=== PATIENT | female | born 1955 | race African-American/Black ===

== ENCOUNTER 2018-08-21 06:25 | Day surgery (SDC) | payer OTHER ==
[2018-08-19 09:59] VITALS: BMI 23.9
[2018-08-21] VITALS (13 sets, daily range): BP systolic 104–175; BP diastolic 61–89; PULSE 58–79; RESP 14–21; Ht 163.8 cm; Wt 63.8 kg
[~2018-08-21] VITALS: Ht 163.8 cm; Wt 63.8 kg
[~2018-08-21 06:25] MED LIST: SOD CHLORIDE 0.9% 1,000 ML IV SCH
[2018-08-21] MEDS ORDERED: MIDAZOLAM 1 MG/ML 2 ML INJ ONE (10:18)
[2018-08-21] MEDS ORDERED: NEOSTIGMINE 3 MG/3 ML SYRINGE ONE (10:18)
[2018-08-21] MEDS ORDERED: ROCURONIUM 50 MG INJ ONE (10:18)
[2018-08-21] MEDS ORDERED: GLYCOPYRROLATE 0.4 MG INJ ONE (10:18)
[2018-08-21] MEDS ORDERED: FENTAnyl 50 MCG/ML VIAL ONE ×2 (10:18→12:31)
[2018-08-21] MEDS ORDERED: ONDANSETRON 4 MG INJ ONE (10:18)
[2018-08-21] MEDS ORDERED: CEFAZOLIN 1 GM INJ ONE (10:18)
[2018-08-21] MEDS ORDERED: DEXAMETHASONE 4 MG/ML 5 ML INJ ONE (10:18)
[2018-08-21] MEDS ORDERED: PROPOFOL 20 ML ONE (10:18)
--- NOTE | 2018-08-21 10:56 | PREAC ---
Date/Time of Note Date/Time of Note DATE: 08/21/18 TIME: 10:53 Anesthesia Eval and Record Evaluation Time Pre-Procedure Interview DATE: 08/21/18 TIME: 10:53 Age 62 Sex female NPO: 8 hrs Preoperative diagnosis DEFORMITYOF RECONSTRUCTED BREAST Planned procedure BILATERAL BREAST RECONSTRUCTION Past Medical History Past Medical History: None Surgery & Anesthesia Issues No known issue Meds Anticoagulation: No Beta Adalgisa within 24 hr: No Reason Beta Adalgisa not given: Pt. not on B-Adalgisa No Active Prescriptions or Reported Meds Current Medications Sodium Chloride 1,000 ml @ 0 mls/hr Q0M IV ; Start 08/21/18 at 06:00; Stop 08/21/18 at 16:00 Hydromorphone HCl (Dilaudid) 0.2 mg PACU PRN IV MILD PAIN 1-3; Start 08/21/18 at 11:00; Status UNV Hydromorphone HCl (Dilaudid) 0.4 mg PACU PRN IV MOD PAIN 4-6; Start 08/21/18 at 11:00; Status UNV Hydromorphone HCl (Dilaudid) 0.6 mg PACU PRN IV SEVERE PAIN 7-10; Start 08/21/18 at 11:00; Status UNV Fentanyl (Sublimaze) 25 mcg PACU ORDER PRN IV MILD PAIN 1-3; Start 08/21/18 at 11:00; Status UNV Fentanyl (Sublimaze) 50 mcg PACU ORDER PRN IV MOD PAIN 4-6; Start 08/21/18 at 11:00; Status UNV Fentanyl (Sublimaze) 75 mcg PACU ORDER PRN IV SEVERE PAIN 7-10; Start 08/21/18 at 11:00; Status UNV Oxycodone/ Acetaminophen (Percocet (5/ 325)) 1 tab PACU ORDER PRN PO .PAIN 1-5; Start 08/21/18 at 11:00; Status UNV Oxycodone/ Acetaminophen (Percocet (5/ 325)) 2 tab PACU ORDER PRN PO .PAIN 6-10; Start 08/21/18 at 11:00; Status UNV Ondansetron HCl (Zofran Inj) 4 mg PACU ORDER PRN IV NAUSEA/VOMITING; Start 08/21/18 at 11:00; Status UNV Trimethobenzamide HCl (Tigan) 200 mg PACU ORDER PRN IM NAUSEA/VOMITING; Start 08/21/18 at 11:00; Status UNV Labetalol HCl (Labetalol) 5 mg PACU ORDER PRN IV HIGH BLOOD PRESSURE; Start 08/21/18 at 11:00; Status UNV Hydralazine HCl (Apresoline) 5 mg PACU ORDER PRN IV HIGH BLOOD PRESSURE; Start 08/21/18 at 11:00; Status UNV Ephedrine Sulfate 5 mg PACU ORDER PRN IV BLOOD PRESSURE SUPPORT; Start 08/21/18 at 11:00; Status UNV Albuterol (Proventil 0.083% (Neb)) 2.5 mg PACU ORDER PRN HHN .WHEEZING; Start 08/21/18 at 11:00; Status UNV Ipratropium Franklin (Atrovent 0.02% (Neb)) 0.5 mg PACU ORDER PRN HHN .WHEEZING; Start 08/21/18 at 11:00; Status UNV Meperidine HCl (Demerol) 25 mg PACU ORDER PRN IV .RIGORS; Start 08/21/18 at 11:00; Status UNV Diphenhydramine HCl (Benadryl) 25 mg PACU ORDER PRN IV .PRURITUS; Start 08/21/18 at 11:00; Status UNV Midazolam HCl (Versed) 0.5 mg PACU ORDER PRN IV .ANXIETY; Start 08/21/18 at 11:00; Status UNV Meds reviewed: Yes Allergies Coded Allergies: No Known Allergy (Unverified , 08/21/18) Allergies Reviewed: Yes Labs/Studies Labs Reviewed: Reviewed by anesthesiologist test: N/A Pre-procedure Exam Last vitals Vital Signs Date Temp Pulse Resp B/P (MAP) Pulse Ox O2 O2 Flow FiO2 Time Delivery Rate 08/21/18 97.5 79 16 157/70 100 07:50 (99) Airway: Adequate mouth opening, Adequate thyromental dist Mallampati: Mallampati II Teeth: Normal Lung: Normal Heart: Normal ASA Physical Status ASA physical status: 1 Emergency: None Planned Anesthetic General/MAC: ETT Planned Pain Management Parenteral pain med Pre-operative Attestations Prior to commencing anesthesia and surgery, the patient was re-evaluated, there was verification of: *The patient's identity *The results of appropriate recent lab work and preoperative vital signs *The above evaluation not changing prior to induction *Anesthetic plan, risk benefits, alternative and complications discussed with patient/family; questions answered; patient/family understands, accepts and wis hes to proceed. Ronan Ortiz M.D. Aug 21, 2018 10:56
[2018-08-21] MEDS ORDERED: DIPHENHYDRAMINE 50 MG INJ IV PRN (11:00)
[2018-08-21] MEDS ORDERED: TRIMETHOBENZAMIDE 100 MG/ML VIAL IM PRN (11:00)
[2018-08-21] MEDS ORDERED: HYDROmorphONE 1 MG/5 ML IV SYRINGE IV PRN ×3 (11:00)
[2018-08-21] MEDS ORDERED: ALBUTEROL 0.083% (NEB) 2.5 MG/3 ML AMP HHN PRN (11:00)
[2018-08-21] MEDS ORDERED: EPHEDrine SULFATE 50 MG/5 ML SYG IV PRN (11:00)
[2018-08-21] MEDS ORDERED: ONDANSETRON 4 MG INJ IV PRN ×2 (11:00→13:30)
[2018-08-21] MEDS ORDERED: hydrALAzine 20 MG INJ IV PRN (11:00)
[2018-08-21] MEDS ORDERED: IPRATROPIUM (NEB) 0.5 MG/2.5 ML AMP HHN PRN (11:00)
[2018-08-21] MEDS ORDERED: FENTAnyl 50 MCG/ML VIAL IV PRN ×3 (11:00)
[2018-08-21] MEDS ORDERED: MIDAZOLAM 1 MG/ML 2 ML INJ IV PRN (11:00)
[2018-08-21] MEDS ORDERED: MEPERIDINE 25 MG INJ IV PRN (11:00)
[2018-08-21] MEDS ORDERED: OXYCODONE/ACETAMINOPHEN (5/325) TAB PO PRN ×2 (11:00)
[2018-08-21] MEDS ORDERED: LABETALOL HCL 20MG INJ IV PRN (11:00)
--- NOTE | 2018-08-21 11:03 | PAC ---
Date/Time of Note Date/Time of Note DATE: 08/21/18 TIME: 11:03 Post-Anesthesia Notes Post-Anesthesia Note Last documented vital signs Vital Signs Date Temp Pulse Resp B/P (MAP) Pulse Ox O2 O2 Flow FiO2 Time Delivery Rate 08/21/18 97.5 79 16 157/70 100 07:50 (99) Activity: WNL Respiratory function: WNL Cardiovascular function: WNL Mental status: Baseline Pain reasonably controlled: Yes Hydration appropriate: Yes Nausea/Vomiting absent: Yes Ronan Ortiz M.D. Aug 21, 2018 11:03
[2018-08-21] MEDS ORDERED: GENTAMICIN 80 MG INJ ONE (11:18)
[2018-08-21] MEDS ORDERED: BUPIVACAINE 0.25% (MPF) 30 ML INJ ONE (11:18)
--- NOTE | 2018-08-21 11:24 | HPN ---
Date/Time of Note Date/Time of Note DATE: 08/21/18 TIME: 11:23 Interval H&P Admission Note Pt. seen H&P reviewed: No system changes ANNEMARIE PRAKASH MD Aug 21, 2018 11:24
[2018-08-21] MEDS ORDERED: BUPIVACAINE 0.5%/EPI (SDV) 30 ML INJ INJ ONE (11:30)
[2018-08-21] MEDS ORDERED: BUPIVACAINE LIPOSOME/PF 266 MG/20 ML VIAL INFIL ONE (11:30)
[2018-08-21] MEDS ORDERED: EXPAREL NOTE (BUPIVICAINE LIPOSOMAL) XX SCH (11:30)
[2018-08-21] MEDS ORDERED: BUPIVACAINE 0.5%/EPI (SDV) 30 ML INJ ONE (11:37)
--- NOTE | 2018-08-21 11:37 | OPR ---
Date/Time of Note Date/Time of Note DATE: 08/21/18 TIME: 11:24 Operative Report Free Text/Dictation Plastic Surgery Operative Report Preoperative diagnosis: bilateral breast deformity Postoperative diagnosis: same Procedure: bilateral breast reconstruction Surgeon: rachel Padilla.: PHOENIX roberts Anesthesia: gen EBL: min IV fluids: per flow sheet Findings: n/a Complications: none Dispo: home Indications for procedure: 62 yo patient presents for bilateral breast reconstruction. The risks, benefits, and alternatives of performing this procedure were discussed with the patient including the risks of bleeding, infection, wound healing problems, asymmetry, partial or total nipple necrosis. The risk of asymmetry and need for revision surgery were also discussed. The patient states that she understands these risks and would like to proceed with the procedure. All questions were answered, no guarantees were given with regards the outcome of this procedure. Description of procedure: The patient was brought to the operating room where general anesthesia was induced and she was prepped and draped in the usual sterile fashion with chloroprep. When the patient was in the supine position, the nipple tethering was fully apparent on both sides. Based on this new positioning, the plan was to perform a circumareolar mastopexy, and then through the lower portion of the incision release the tethering and reposition the breast tissue. Therefore, a circumareolar mastopexy was marked with a superior pedicle. 5 cc of 0.5% Marcaine with 1:200,000 epinephrine were injected into the planned incision sites. First, attention was turned to the right breast where the incision was made with the 10 blade and the pedicle was de- epithelialized with the 10 blade and dissection proceeded with electrocautery down to the pectoralis muscle. Next, the electrocautery was used to dissect along the pectoralis muscle superiorly until the nipple and areola were fully released. There was dense scarring below the nipple and areola. A pocket was created in this area. Multiple scars were released until the nipple and areolea sat free from the chest wall without tension. Hemostasis was achieved with electrocautery and the breast was irrigated with antibiotic irrigation. An inferior flap of glandular tissue was then from the lower breast flap and was advanced superiorly. This was anchored to the chest wall with 2-0 Vicryl suture to help bolster the pedicle. The breast was towel clipped closed. Attention was turned to the contralateral breast where a similar procedure was carried out. Incision was made with a 10 blade and the pedicle was de- epithelialized with a 10 blade. Dissection proceeded along the inferior border of the marked area until the chest wall was encountered. Dissection then turned superiorly and proceeded until the nipple and areola were fully released. Hemostasis was achieved with electrocautery. There was dense scarring present in this area as well. Multiple scar releases were performed. A separate medial and lateral and inferior flap was then created based on the presence of the glandular tissue. This was done with electrocautery. The flap was advanced superiorly and was anchored to the chest wall with 2-0 Vicryl suture to help bolster the pedicle. Hemostasis was achieved with electrocautery. The breast was irrigated antibiotic irrigation and was towel clipped closed. The patient was sat up on the operating table. The tethering was fully released and the nipple and areola position appeared to be symmetric. Therefore the patient was sat back down. Hemostasis was achieved one final time with the cautery and then the breast parenchyma was closed with 2-0 Vicryl suture followed by 3-0 Vicryl suture and 4-0 Monocryl suture on the skin. The patient tolerated procedure well, there were no complications, follow-up information and wound care instructions were given, PHOENIX Roberts assisted with this procedure Preoperative Diagnosis breast deformity bilaterally Postoperative Diagnosis Same Operation/Procedure Performed Bilateral breast reconstruction Surgeon see signature line Raspberry Checker PHOENIX Roberts Anesthesia Type: general Estimated Blood Loss: minimal Transfusion none Specimen None Grafts/Implants none Complications none Pt Condition Post Procedure: stable Procedure Description See dictation ANNEMARIE PRAKASH MD Aug 21, 2018 11:35
[2018-08-21] MEDS ORDERED: BUPIVACAINE LIPOSOME/PF 266 MG/20 ML VIAL INFIL SCH (12:00)
[2018-08-21] MEDS ORDERED: LABETALOL HCL 20MG INJ ONE (13:00)
--- NOTE | 2018-08-21 13:24 | PAC ---
Date/Time of Note Date/Time of Note DATE: 08/21/18 TIME: 13:24 Post-Anesthesia Notes Post-Anesthesia Note Last documented vital signs Vital Signs Date Temp Pulse Resp B/P (MAP) Pulse Ox O2 O2 Flow FiO2 Time Delivery Rate 08/21/18 97.5 79 16 157/70 100 13:24 (99) Activity: WNL Respiratory function: WNL Cardiovascular function: WNL Mental status: Baseline Pain reasonably controlled: Yes Hydration appropriate: Yes Nausea/Vomiting absent: Yes Ronan Ortiz M.D. Aug 21, 2018 13:24
[2018-08-21] MEDS ORDERED: morphine 2 MG INJ IV PRN (13:30)
[2018-08-21] MEDS ORDERED: HYDROCODONE/APAP (5/325) TAB PO PRN (13:30)
[2018-08-21] MEDS ORDERED: METOCLOPRAMIDE 10 MG INJ IV ONE (15:30)
== END 2018-08-21 16:20 | disposition home or self-care (01) ==
LOC: SDS 06:25
PROVIDERS: ATTEND Surgery Plastic and Reconstructive Surgery
DX: N65.1 Disproportion of reconstructed breast (principal)
CPT/HCPCS: 19316; 71045; C9290; J0360; J0690; J1100; J2175; J2250; J2405; J2710; J2765; J3010; Z7512; Z7610; J1580

== ENCOUNTER 2019-01-22 05:46 | Day surgery (SDC) | payer OTHER ==
[2019-01-21 14:48] VITALS: BMI 24.4
[2019-01-22] VITALS (16 sets, daily range): BP systolic 122–198; BP diastolic 55–92; PULSE 80–106; RESP 16–26; Ht 162.6 cm; Wt 63.3 kg
[~2019-01-22] VITALS: Ht 162.6 cm; Wt 63.3 kg
[2019-01-22] MEDS ORDERED: POLYMYXIN/BACITRACIN 1L IRRIG ONE (07:12)
[2019-01-22] MEDS ORDERED: BUPIVACAINE 0.25% (MPF) 30 ML INJ ONE (07:12)
[2019-01-22] MEDS ORDERED: GENTAMICIN 80 MG INJ ONE (07:12)
[2019-01-22] MEDS ORDERED: EPINEPHrine 1 MG INJ ONE (07:26)
[2019-01-22] MEDS ORDERED: LIDOCAINE 2% (SDV) 5 ML INJ ONE (07:30)
[2019-01-22] MEDS ORDERED: MEPERIDINE 100 MG INJ ONE (07:30)
[2019-01-22] MEDS ORDERED: GLYCOPYRROLATE 0.4 MG INJ ONE (07:30)
[2019-01-22] MEDS ORDERED: NEOSTIGMINE 3 MG/3 ML SYRINGE ONE (07:30)
[2019-01-22] MEDS ORDERED: PROPOFOL 20 ML ONE (07:30)
[2019-01-22] MEDS ORDERED: SUCCINYLCHOLINE CHLORIDE 100 MG/5 ML SYG IV ONE (07:30)
[2019-01-22] MEDS ORDERED: ROCURONIUM 50 MG INJ ONE (07:30)
[2019-01-22] MEDS ORDERED: BUPIVACAINE LIPOSOME/PF 266 MG/20 ML VIAL INFIL SCH (07:30)
[2019-01-22] MEDS ORDERED: ONDANSETRON 4 MG INJ ONE (07:35)
[2019-01-22] MEDS ORDERED: METOCLOPRAMIDE 10 MG INJ ONE (07:35)
[2019-01-22] MEDS ORDERED: BUPIVACAINE 0.25%/EPI (SDV) 10 ML INJ ONE (08:07)
[2019-01-22] MEDS ORDERED: DIPHENHYDRAMINE 50 MG INJ IV PRN (09:00)
[2019-01-22] MEDS ORDERED: EPHEDrine 25 MG/5 ML SYG IV PRN (09:00)
[2019-01-22] MEDS ORDERED: LABETALOL HCL 20MG INJ IV PRN (09:00)
[2019-01-22] MEDS ORDERED: MEPERIDINE 25 MG INJ IV PRN (09:00)
[2019-01-22] MEDS ORDERED: METOCLOPRAMIDE 10 MG INJ IV PRN (09:00)
[2019-01-22] MEDS ORDERED: hydrALAzine 20 MG INJ IV PRN (09:00)
[2019-01-22] MEDS ORDERED: FENTAnyl 50 MCG/ML VIAL IV PRN ×3 (09:00)
[2019-01-22] MEDS ORDERED: MIDAZOLAM 1 MG/ML 2 ML INJ IV PRN (09:00)
[2019-01-22] MEDS ORDERED: ONDANSETRON 4 MG INJ IV PRN ×2 (09:00→10:30)
[2019-01-22] MEDS ORDERED: HYDROmorphONE 1 MG/5 ML IV SYRINGE IV PRN ×3 (09:00)
[2019-01-22] MEDS ORDERED: OXYCODONE/ACETAMINOPHEN (5/325) TAB PO PRN ×2 (09:00)
[2019-01-22] MEDS ORDERED: HYDROCODONE/APAP (5/325) TAB PO PRN (10:30)
[2019-01-22] MEDS ORDERED: morphine 2 MG INJ IV PRN (10:30)
== END 2019-01-22 12:42 | disposition home or self-care (01) ==
LOC: SDS 05:46
PROVIDERS: ATTEND Surgery Plastic and Reconstructive Surgery
DX: Z42.1 Encounter for breast reconstruction following mastectomy (principal); Z85.3 Personal history of malignant neoplasm of breast
CPT/HCPCS: 19340; 19366; C1789; C9290; J0171; J0360; J1580; J2175; J2405; J2710; J2765; Z7512; Z7610